=== PATIENT | male | born 1960 | race Hispanic/Latino ===

== ENCOUNTER 2020-04-15 12:20 | Emergency (ER) | payer SELFPAY ==
[~2020-04-15] VITALS: Ht 172.7 cm; Wt 80.0 kg
[~2020-04-15 12:20] MED LIST: GLIP/METFORM1 TA2 PO; GLIPIZIDE10 MG PO; LANTUS100 MG/ML SC; LEVAMIR SC; LIPITOR20 M1 PO; LO-DOSE ASA81 MG PO; METFORMIN500 M1 OR; NAPROXEN DR500 MG PO; NO HOME MEDS; TRAMADOL HCL50 MG OR; ULTRAM50 MG PO; ZESTRIL10 M1 PO; [UNRECOGNIZED DRUG - REMARK]
[2020-04-15 13:12] LABS: HEMATOCRIT 44.8 % (39.0-50.0); HEMOGLOBIN 14.7 g/dl (14.0-18.0); IMMATURE GRANULOCYTES 0.7 % (0.0-5.0); MEAN CORPUSCULAR HGB 30.1 pG CALC (26.0-32.0); MEAN CORPUSCULAR HGB CONC 32.8 g/dL CAL (32.0-36.0); NEUT# 3.31 thou/uL (1.82-7.42); RED BLOOD COUNT 4.88 mill/uL (4.70-6.10); RED CELL DISTRI WIDTH 12.1 % (11.5-15.5)
[2020-04-15 13:15] LABS: MEAN CELL VOLUME 91.8 fL CALC (80.0-100.0)
[2020-04-15 13:23] LABS: ALBUMIN 4.4 g/dL (3.2-5.0); ALKALINE PHOSPHATASE 105 u/l (38-126); ANION GAP 15 (6-22 (CALC)); BUN 16 mg/dL (9-20); BUN/CREATININE RATIO 25 (12-20 (CALC)); CARBON DIOXIDE 28 mmol/l (22-30); CHLORIDE 94 mmol/l (95-108); CREATININE 0.6 mg/dL (0.7-1.3); GFR > 60 ML/MIN (>=60 (CALC)); GFR FOR AFR.AMER. > 60 ML/MIN (>=60 (CALC)); POTASSIUM 4.6 mmol/l (3.5-5.1); SODIUM 132 mmol/l (137-146); TOTAL PROTEIN 7.5 g/dL (6.3-8.2)
[2020-04-15] MEDS ORDERED: LEVEMIR100 UNIT/M SC (13:26)
[2020-04-15] MEDS ORDERED: BP MED (13:29)
[2020-04-15] MEDS ORDERED: CHOLESTEROL MED (13:30)
[2020-04-15 13:38] LABS: BILIRUBIN, TOTAL 0.7 mg/dL (0.0-1.4); SGOT/AST 26 u/l (17-59)
[2020-04-15] MEDS ORDERED: KEFLEX500 M1 PO (14:14)
[2020-04-15 14:30] VITALS: BP 152/75
== END 2020-04-15 14:30 | disposition home or self-care (01) | DRG 603 ==
LOC: ED 12:20
DX: L03.031 Cellulitis of right toe (principal); L03.115 Cellulitis of right lower limb; I10 Essential (primary) hypertension; E11.9 Type 2 diabetes mellitus without complications; B95.1 Streptococcus, group B, as the cause of diseases classified elsewhere; Z79.4 Long term (current) use of insulin

== ENCOUNTER 2020-08-16 09:59 | Inpatient (IN) | payer SELFPAY ==
[~2020-08-16] VITALS: Ht 170.2 cm; Wt 73.0 kg
[~2020-08-16 09:59] MED LIST changes: +BP MED; +CHOLESTEROL MED; +KEFLEX500 M1 PO; +LEVEMIR100 UNIT/M SC
[2020-08-16 11:33] LABS: HEMATOCRIT 42.1 % (39.0-50.0); HEMOGLOBIN 14.1 g/dl (14.0-18.0); IMMATURE GRANULOCYTES 0.7 % (0.0-5.0); MEAN CELL VOLUME 89.6 fL CALC (80.0-100.0); MEAN CORPUSCULAR HGB CONC 33.5 g/dL CAL (32.0-36.0); NEUT# 10.75 thou/uL (1.82-7.42); RED BLOOD COUNT 4.7 mill/uL (4.70-6.10); RED CELL DISTRI WIDTH 12.7 % (11.5-15.5)
[2020-08-16 11:50] LABS: ALBUMIN 3.7 g/dL (3.2-5.0); ALKALINE PHOSPHATASE 73 u/l (38-126); ANION GAP 15 (6-22 (CALC)); BUN 23 mg/dL (9-20); BUN/CREATININE RATIO 33 (12-20 (CALC)); CARBON DIOXIDE 25 mmol/l (22-30); CHLORIDE 93 mmol/l (95-108); CREATININE 0.7 mg/dL (0.7-1.3); GFR > 60 ML/MIN (>=60 (CALC)); GFR FOR AFR.AMER. > 60 ML/MIN (>=60 (CALC)); POTASSIUM 4.8 mmol/l (3.5-5.1); SGOT/AST 20 u/l (17-59); SODIUM 129 mmol/l (137-146); TOTAL PROTEIN 6.3 g/dL (6.3-8.2)
[2020-08-16 11:57] LABS: ACT PARTIAL THROMBO TIME 28.5 SECONDS (20.0-32.5); PROTHROMBIN TIME 9.6 SECONDS (9.0-12.5)
[2020-08-16] MEDS ORDERED: SIMVASTATIN5 MG PO (12:02)
[2020-08-16] MEDS ORDERED: LISINOPRIL2.5 MG PO (12:03)
[2020-08-16 16:00] VITALS: BP 152/80
[2020-08-16 20:00] VITALS: BP 133/75
[2020-08-17 04:00] VITALS: BP 133/78
[2020-08-17 05:58] LABS: CHOLESTEROL HDL RATIO 2.6 (<4.4 (CALC)); MAGNESIUM 1.9 mg/dL (1.6-2.3)
[2020-08-17 07:47] VITALS: BP 127/71
[2020-08-17 15:00] VITALS: BP 155/77
[2020-08-17 19:30] VITALS: BP 127/65
[2020-08-18 04:00] VITALS: BP 139/72
[2020-08-18 06:15] LABS: HEMATOCRIT 36.3 % (39.0-50.0); MEAN CORPUSCULAR HGB 30.3 pG CALC (26.0-32.0); MEAN CORPUSCULAR HGB CONC 33.3 g/dL CAL (32.0-36.0); RED BLOOD COUNT 3.99 mill/uL (4.70-6.10); RED CELL DISTRI WIDTH 12.7 % (11.5-15.5)
[2020-08-18 06:19] LABS: HEMOGLOBIN 12.1 g/dl (14.0-18.0)
[2020-08-18 06:32] LABS: ANION GAP 8 (6-22 (CALC)); BUN 12 mg/dL (9-20); BUN/CREATININE RATIO 23 (12-20 (CALC)); CARBON DIOXIDE 27 mmol/l (22-30); CHLORIDE 103 mmol/l (95-108); CREATININE 0.5 mg/dL (0.7-1.3); GFR > 60 ML/MIN (>=60 (CALC)); GFR FOR AFR.AMER. > 60 ML/MIN (>=60 (CALC)); MAGNESIUM 1.7 mg/dL (1.6-2.3); POTASSIUM 4.3 mmol/l (3.5-5.1); SODIUM 133 mmol/l (137-146)
[2020-08-18 08:00] VITALS: BP 148/78
[2020-08-18 15:10] VITALS: BP 159/87
[2020-08-18 20:00] VITALS: BP 154/85
[2020-08-19 04:16] VITALS: BP 141/81
[2020-08-19 05:40] LABS: HEMATOCRIT 37.6 % (39.0-50.0); HEMOGLOBIN 12.4 g/dl (14.0-18.0); IMMATURE GRANULOCYTES 0.5 % (0.0-5.0); MEAN CELL VOLUME 90.2 fL CALC (80.0-100.0); MEAN CORPUSCULAR HGB 29.7 pG CALC (26.0-32.0); NEUT# 6.51 thou/uL (1.82-7.42); RED BLOOD COUNT 4.17 mill/uL (4.70-6.10); RED CELL DISTRI WIDTH 12.7 % (11.5-15.5)
[2020-08-19 05:58] LABS: ANION GAP 10 (6-22 (CALC)); BUN 8 mg/dL (9-20); BUN/CREATININE RATIO 16 (12-20 (CALC)); CARBON DIOXIDE 29 mmol/l (22-30); CHLORIDE 100 mmol/l (95-108); CREATININE 0.5 mg/dL (0.7-1.3); GFR > 60 ML/MIN (>=60 (CALC)); GFR FOR AFR.AMER. > 60 ML/MIN (>=60 (CALC)); POTASSIUM 4.3 mmol/l (3.5-5.1); SODIUM 135 mmol/l (137-146)
[2020-08-19 07:35] VITALS: BP 150/75
[2020-08-19 15:00] VITALS: BP 138/69
[2020-08-19 19:00] VITALS: BP 114/53
[2020-08-20 04:08] VITALS: BP 132/66
[2020-08-20 05:49] LABS: HEMATOCRIT 35.5 % (39.0-50.0); HEMOGLOBIN 11.8 g/dl (14.0-18.0); IMMATURE GRANULOCYTES 0.9 % (0.0-5.0); MEAN CELL VOLUME 89.9 fL CALC (80.0-100.0); MEAN CORPUSCULAR HGB 29.9 pG CALC (26.0-32.0); MEAN CORPUSCULAR HGB CONC 33.2 g/dL CAL (32.0-36.0); NEUT# 7.51 thou/uL (1.82-7.42); RED BLOOD COUNT 3.95 mill/uL (4.70-6.10); RED CELL DISTRI WIDTH 12.6 % (11.5-15.5)
[2020-08-20 06:18] LABS: ALKALINE PHOSPHATASE 75 u/l (38-126); ANION GAP 9 (6-22 (CALC)); BILIRUBIN, TOTAL 0.6 mg/dL (0.0-1.4); BUN 10 mg/dL (9-20); BUN/CREATININE RATIO 17 (12-20 (CALC)); CARBON DIOXIDE 28 mmol/l (22-30); CHLORIDE 102 mmol/l (95-108); CREATININE 0.6 mg/dL (0.7-1.3); GFR > 60 ML/MIN (>=60 (CALC)); GFR FOR AFR.AMER. > 60 ML/MIN (>=60 (CALC)); POTASSIUM 4.4 mmol/l (3.5-5.1); SGOT/AST 28 u/l (17-59); SODIUM 134 mmol/l (137-146); TOTAL PROTEIN 5.1 g/dL (6.3-8.2)
[2020-08-20 06:31] LABS: ALBUMIN 2.6 g/dL (3.2-5.0)
[2020-08-20 07:38] VITALS: BP 141/72
[2020-08-20 08:53] VITALS: BP 141/72
[2020-08-20] MEDS ORDERED: DOXYCYCL HYC100 MG PO (12:41)
[2020-08-20] MEDS ORDERED: KEFLEX750 M1 PO (12:41)
[2020-08-20] MEDS ORDERED: HUMALOG KW100 UNIT/M SC (12:41)
[2020-08-20] MEDS ORDERED: CRUTCHES EX (12:41)
[2020-08-20] MEDS ORDERED: [UNRECOGNIZED DRUG - OTHER] EX (12:41)
[2020-08-20] MEDS ORDERED: HYDROCO/APAP1 TA9 PO (12:42)
== END 2020-08-20 15:50 | disposition home or self-care (01) | DRG 603 ==
LOC: ED 09:59 → ED-I 14:18 → ED 14:23 → MS2 14:24
PROVIDERS: Internal Medicine; Nurse Practitioner; Student in an Organized Health Care Education/Training Program; ADMIT Internal Medicine; ATTEND Internal Medicine
DX: L03.116 Cellulitis of left lower limb (principal); E11.65 Type 2 diabetes mellitus with hyperglycemia; E11.69 Type 2 diabetes mellitus with other specified complication; R61 Generalized hyperhidrosis; I10 Essential (primary) hypertension; E78.5 Hyperlipidemia, unspecified; Z79.4 Long term (current) use of insulin; Z20.822 Contact with and (suspected) exposure to COVID-19
CPT/HCPCS: J0692; J1650; J3370; Q9967